=== PATIENT | male | born 1990 | race Caucasian/White ===

== ENCOUNTER 2017-03-14 12:08 | Emergency (ER) | payer BC, MEDICAID ==
[2017-03-14 12:25] VITALS: BP 168/94
--- NOTE | 2017-03-14 12:34 | UC ---
Skin Complaint HPI - HPI Summary HPI Summary: 26 y/o male presents to the urgent care c/o LF lower leg lateral side with red rash, painful since Wednesday night. He can't recalled if he was bitten by an insect. Yesterday Morning he had mild fever and dizziness. He took Advil and symptoms improved. Today pain is 6/10 when he touch it and 2/10 at rest. The redness is spreading and getting bigger. Pt denies SOB, chest pain, calf pain, abdominal pain, N/V/D.Denies HX of MRSA - History of Current Complaint Chief Complaint: UCLowerExtremity Time Seen by Provider: 03/14/17 12:26 Stated Complaint: BITE Hx Obtained From: Patient Onset/Duration: Gradual Onset, Lasting Days - 3 days, Still Present Skin Exposure Onset/Duration: Days Ago - 3 Timing: Constant Onset Severity: Mild Current Severity: Moderate Pain Intensity: 6 Pain Scale Used: 0-10 Numeric Location: Discrete - lateral side of the LF lower leg Character: Swelling, Pain, Redness Aggravating: Touch Alleviating: OTC Meds Associated Signs & Symptoms: Positive: Fever - subjective at home yesterday, Tenderness. Negative: Nausea, Vomiting, Diaphoresis, Chills, Throat Tightening , Abdominal Pain, Red Streaks, Joint Swelling Related History: Possible Reaction to: Insect - Allergy/Home Medications Allergies/Adverse Reactions: Allergies Allergy/AdvReac Type Severity Reaction Status Date / Time No Known Allergies Allergy Verified 03/14/17 12:25 Review of Systems Constitutional: Fever - subjective at home Skin: Rash - LF lower leg Eyes: Negative ENT: Negative Respiratory: Negative Cardiovascular: Negative Gastrointestinal: Negative Genitourinary: Negative Motor: Negative Neurovascular: Negative Musculoskeletal: Negative Neurological: Negative Psychological: Negative Is Patient Immunocompromised?: No All Other Systems Reviewed And Are Negative: Yes PMH/Surg Hx/FS Hx/Imm Hx - Additional Past Medical History Additional PMH: Psoriasis Previously Healthy: Yes - Surgical History Surgical History: Yes Surgery Procedure, Year, and Place: ear tubes as a child - Family History Known Family History: Positive: Hypertension, Diabetes - Social History Occupation: Employed Full-time Lives: With Family Alcohol Use: Occasionally Substance Use Type: None Smoking Status (MU): Never Smoked Tobacco - Immunization History Most Recent Tetanus Shot: unknown Physical Exam Triage Information Reviewed: Yes Appearance: Well-Appearing, No Pain Distress, Well-Nourished, Obese Vital Signs: Initial Vital Signs Temp 98.2 F 03/14/17 12:17 Pulse 78 03/14/17 12:17 Resp 16 03/14/17 12:17 BP 168/94 03/14/17 12:17 Pulse Ox 100 03/14/17 12:17 Vital Signs Reviewed: Yes Eye Exam: Normal Eyes: Positive: Conjunctiva Clear - PERRLA, EOMI ENT Exam: Normal ENT: Positive: Normal ENT inspection, Hearing grossly normal, Pharynx normal, TMs normal Neck exam: Normal Neck: Positive: Supple, Nontender, No Lymphadenopathy Respiratory Exam: Normal Respiratory: Positive: Chest non-tender, Lungs clear, Normal breath sounds Cardiovascular Exam: Normal Cardiovascular: Positive: RRR, No Murmur, Pulses Normal Abdominal Exam: Normal Abdomen Description: Positive: Nontender, No Organomegaly, Soft. Negative: CVA Tenderness (R), CVA Tenderness (L) Bowel Sounds: Positive: Present Musculoskeletal Exam: Normal Musculoskeletal: Positive: Strength Intact, ROM Intact, No Edema, Other: - Negative Liz sign negative, no calf tenderness or swelling observed Neurological Exam: Normal Psychological Exam: Normal Skin: Positive: rashes - Lateral and ventral side of the LF lower leg with an erythematoud patch with indistinct borders. Size: 0pdJ2bg in size, warm to touch , discrete swelling, mild tenderness to palpation. Positive pulses over the lower extremities, capillary refill brisk, FROM of LF lower leg. Course/Dx - Course Course Of Treatment: 26 y/o male presents to the urgent care c/o LF lower leg lateral side with red rash, painful since Wednesday night. He can't recalled if he was bitten by an insect. Yesterday Morning he had mild fever and dizziness. He took Advil and symptoms improved. Today pain is 6/10 when he touch it and 2/10 at rest. The redness is spreading and getting bigger. Pt denies SOB, chest pain , calf pain, abdominal pain, N/V/D.Denies HX of MRSA. HX obtained. Pt with cellulitis of LF lower leg. Pt Rx Keflex PO, IbuprofenPO for pain. Rash demarcated with a skin marker and Advised if rash doubles in size and if she develops fever to go to the ER for further treatment. Pt BP today elevated w/o Hx of HTN. Pt advised to decrease salt in diet and monitor BP at home if it continues to be elevated to f/u with PCP for further management. Pt understood and agreed. Pt left the clinic ambulating, A&OX3. - Differential Diagnoses - Skin Complaint Differential Diagnoses: Abscess, Allergic Reaction, Cellulitis, Local Allergic Reaction, Lymphadenitis, MRSA, Tick Born Illness, Urticaria, Other - DVT - Diagnoses Provider Diagnoses: 1- Cellulitis of the Left lower leg Discharge - Discharge Plan Condition: Stable Disposition: HOME Prescriptions: Cephalexin CAP* [Keflex CAP*] 500 mg PO QID #28 cap Ibuprofen TAB* [Motrin TAB* 800 MG] 800 mg PO Q6H #30 tab Patient Education Materials: Cellulitis (ED), Low Sodium Diet (ED) Forms: *Work Release Referrals: Torres Vyas MD [Primary Care Provider] - 3 Days Additional Instructions: 1-Please take full course of Antibiotic. 2- If redness and swelling doubles in size beyond what was demarcated after 48 hrs of taking antibiotic and fever develops please go to the ER immediately. 3-Avoid standing for long periods of time or flexing your leg, keep it elevated and keep wound clean and dry. 4- Your BP today is elevated, please decrease salt in your diet, monitor your BP , if it continues to be elevated please f/y with your PCP for further management.
== END 2017-03-14 12:47 | disposition home or self-care (01) ==
LOC: UCEAST 12:08
DX: L03.116 Cellulitis of left lower limb (principal); R50.9 Fever, unspecified; E66.9 Obesity, unspecified
CPT/HCPCS: 99202; G0463

== ENCOUNTER 2018-02-02 19:58 | Emergency (ER) | payer BC ==
[2018-02-02 20:26] VITALS: BP 158/110
[2018-02-02] MEDS ORDERED: cefTRIAXone VIAL(*) 1,000 MG VIAL IM ONE (20:50)
[2018-02-02] MEDS ORDERED: Lidocaine 1% MPF* 2 ML VIAL INJ ONE (20:52)
--- NOTE | 2018-02-02 21:05 | UC ---
Skin Complaint HPI - HPI Summary HPI Summary: Patient presents to the emergency department for evaluation of redness of his right leg. Patient states 2 days ago he little bit of discomfort in his knee where he has significant plaque psoriasis. Eischen states yesterday he noticed a little bit of erythema. Patient states today the erythema has strict towards his mid thigh. Patient denies drainage. Patient denies fevers, chills, rash, fatigue. No nausea vomiting. Patient states she does have a little bit discomfort at the knee. Patient took ibuprofen and continue to work his shift today. 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 Patient states he had something very similar approximately one year ago. Patient was treated with outpatient Keflex and symptoms completely resolve. Patient's tetanus is up -to-date. Patient is not immunocompromised desipte having psoriasis he is not on any medications. Patient without any other complaints. - History of Current Complaint Chief Complaint: UCSkin Time Seen by Provider: 02/02/18 20:27 Stated Complaint: SKIN CONCERN - RT LEG Hx Obtained From: Patient Skin Exposure Onset/Duration: Days Ago Onset Severity: Mild Current Severity: Moderate Pain Intensity: 6 Pain Scale Used: 0-10 Numeric Location: Discrete Aggravating Factor(s): Nothing Alleviating Factor(s): Nothing - Allergy/Home Medications Allergies/Adverse Reactions: Allergies Allergy/AdvReac Type Severity Reaction Status Date / Time No Known Allergies Allergy Verified 02/02/18 20:27 Review of Systems Constitutional: Negative Skin: Other All Other Systems Reviewed And Are Negative: Yes PMH/Surg Hx/FS Hx/Imm Hx Previously Healthy: Yes - Surgical History Surgical History: Yes Surgery Procedure, Year, and Place: ear tubes as a child - Family History Known Family History: Positive: Hypertension, Diabetes - Social History Occupation: Employed Full-time Lives: With Family Alcohol Use: Occasionally Substance Use Type: None Smoking Status (MU): Never Smoked Tobacco - Immunization History Most Recent Tetanus Shot: unknown Physical Exam - Summary Physical Exam Summary: Vital Signs Reviewed: Yes A+Ox3, no distress Eyes: Conjunctiva Clear, DRAGAN. EOM intact and full ENT: Hearing grossly normal TM x 2 clear, mmoist, uvula midline, no exudate, no erythema Neck: Positive: Supple Respiratory: Positive: No respiratory distress, No accessory muscle use + CTA throughout no w/r Cardiovascular: RRR nl s1, s2 no m/r CBT <2 sec abd soft + BS nt/nd no guarding, no distension Musculoskeletal Exam: CRISOSTOMO x 4 without difficulty Strength Intact, full ROM right knee without difficulty or limitation Neurological: Positive: Alert, + sensation throughout Psychological: Positive: Normal Response To Family Skin: Positive: plaque psoriasis b/l knees right knee pt with with 2x 7cm flat patch of erythema extending proximal to mid, medial thigh. warm. non tender, not raised, flat slight irregular margins no drainage Triage Information Reviewed: Yes Vital Signs: Initial Vital Signs Temp 98.9 F 02/02/18 20:14 Pulse 97 02/02/18 20:14 Resp 16 02/02/18 20:14 BP 158/110 02/02/18 20:14 Pulse Ox 99 02/02/18 20:14 Course/Dx - Course Course Of Treatment: Patient with developing cellulitis extending from psoriasis plaque on his right knee to his right mid thigh. 2 x 7 cm total. Patient nontoxic appearing with stable vital signs. Patient does not have a PCP. Patient is not on immunosuppressants. We'll give IM dose of the Rocephin tonight. We'll start patient on Augmentin. Encourage patient to return 36-48 hours for follow-up. Elevate. Rest. Motrin/Tylenol. Strict return precautions. Discussed with patient at length any change in to the emergency department patient states understanding and agreement with plan. - Diagnoses Provider Diagnoses: cellulitis Discharge - Sign-Out/Discharge Documenting (check all that apply): Patient Departure - Discharge Plan Condition: Stable Disposition: HOME Prescriptions: Amoxicillin/Clavulanate TAB* [Augmentin TAB 875*] 875 mg PO BID #20 tab Patient Education Materials: Cellulitis (ED) Forms: *Work Release Referrals: [facility] [place] [facility] [Outside] No Primary Care Phys,NOPCP [Primary Care Provider] - Additional Instructions: - Take antibiotics 2 times a day exactly as prescribed until gone. These antibiotics will likely cause diarrhea. It is recommended that you eat yogurt or take probiotics to help with diarrhea. - For the next 1-2 days is recommended to minimize walking and elevate your leg. - Monitor wound very closely. Redness may strict spread over the next 12-18 hours. This is not unexpected. If redness continues to spread after this time or if you develop any other symptoms - fevers, sweating, increased pain, generally not feeling well it is recommended you go immediately to an emergency department for further evaluation - You should have your wound rechecked in 1-2 days - sooner with any questions or concerns - okay to take Tylenol (acetaminophen) or Ibuprofen for pain or fever - you have been given the contact information for the physician referral office. This will assist you in establishing with a new primary care provider - Billing Disposition and Condition Condition: STABLE Disposition: Home
== END 2018-02-02 21:22 | disposition home or self-care (01) ==
LOC: UCCORT 19:58
DX: L03.115 Cellulitis of right lower limb (principal)
CPT/HCPCS: 96372; 99212; G0463; J0696

== ENCOUNTER 2019-04-02 19:22 | Emergency (ER) | payer BC ==
[2019-04-02 19:51] VITALS: BP 189/113
--- NOTE | 2019-04-02 20:16 | UC ---
Shoulder Pain HPI - HPI Summary HPI Summary: patient tripped and feel yesterday has pain in left shoulder and forearm - History of Current Complaint Chief Complaint: UCUpperExtremity Stated Complaint: shouLDER AND ARM INJURY Time Seen by Provider: 04/02/19 20:15 Hx Obtained From: Patient Onset/Duration: Sudden Onset, Lasting Days - 1 Timing: Constant Location Of Pain: Is Discrete @ - left fore arm and shoulder Pain Intensity: 5 Pain Scale Used: 0-10 Numeric Character: Aching Aggravating Factor(s): Movement Alleviating Factor(s): Rest, Compression Related History: Dominant Hand Right - Allergies/Home Medications Allergies/Adverse Reactions: Allergies Allergy/AdvReac Type Severity Reaction Status Date / Time No Known Allergies Allergy Verified 04/02/19 19:51 Home Medications: Home Medications Acetaminophen TAB* [Tylenol TAB*] 975 mg PO Q4H PRN 04/02/19 [History Confirmed 04/02/19] PMH/Surg Hx/FS Hx/Imm Hx Previously Healthy: Yes - Surgical History Surgical History: Yes Surgery Procedure, Year, and Place: ear tubes as a child - Family History Known Family History: Positive: Hypertension, Diabetes - Social History Occupation: Employed Full-time Lives: With Family Alcohol Use: Weekly Substance Use Type: None Smoking Status (MU): Never Smoked Tobacco - Immunization History Most Recent Tetanus Shot: unknown Review of Systems All Other Systems Reviewed And Are Negative: Yes Constitutional: Positive: Negative Skin: Positive: Negative Eyes: Positive: Negative ENT: Positive: Negative Respiratory: Positive: Negative Cardiovascular: Positive: Negative Gastrointestinal: Positive: Negative Genitourinary: Positive: Negative Motor: Positive: Negative Neurovascular: Positive: Negative Musculoskeletal: Positive: Arthralgia Neurological: Positive: Negative Psychological: Positive: Negative Is Patient Immunocompromised?: No Physical Exam Triage Information Reviewed: Yes Appearance: Well-Appearing, No Pain Distress, Obese Vital Signs: Initial Vital Signs Temp 98.7 F 04/02/19 19:46 Pulse 66 04/02/19 19:46 Resp 16 04/02/19 19:46 BP 189/113 04/02/19 19:46 Pulse Ox 100 04/02/19 19:46 Vital Signs Reviewed: Yes Eye Exam: Normal Eyes: Positive: Conjunctiva Clear ENT: Positive: Normal ENT inspection, Hearing grossly normal. Negative: Trismus , Muffled voice, Hoarse voice Neck exam: Normal Neck: Positive: Supple, Nontender Respiratory Exam: Normal Respiratory: Positive: Chest non-tender, Lungs clear, Normal breath sounds, No respiratory distress, No accessory muscle use Cardiovascular Exam: Normal Cardiovascular: Positive: RRR, Pulses Normal Musculoskeletal Exam: Normal Musculoskeletal: Positive: Strength Intact, ROM Intact, No Edema Neurological Exam: Normal Neurological: Positive: Alert, Muscle Tone Normal Psychological Exam: Normal Skin Exam: Normal Diagnostics - Radiology No standard instances Radiology Interpretation Completed By: ED Physician - no evidence of arm or shoulder fx Shoulder Course/Dx - Course Course Of Treatment: ksenia wrap, ice, tylenol, education regarding hypertension and strong warning to follow with pcp - Differential Dx/Diagnosis Provider Diagnosis: Contusion of left forearm, initial encounter, Hypertension Discharge ED - Sign-Out/Discharge Documenting (check all that apply): Patient Departure All imaging exams completed and their final reports reviewed: No - Discharge Plan Condition: Stable Disposition: HOME Patient Education Materials: Contusion in Adults (ED), Hypertension (ED) Referrals: [facility] [Outside] - 2 Days RONNIE Roblero [Medical Doctor] - 2 Days - Billing Disposition and Condition Condition: STABLE Disposition: Home
== END 2019-04-02 21:17 | disposition home or self-care (01) ==
LOC: UCEAST 19:22
DX: S49.90XA Unspecified injury of shoulder and upper arm, unspecified arm, initial encounter (principal); X58.XXXA Exposure to other specified factors, initial encounter; Y92.9 Unspecified place or not applicable
CPT/HCPCS: 99212; G0463